=== PATIENT | male | born 1955 | race Caucasian/White ===

== ENCOUNTER → 2016-07-16 | Outpatient (CLI) | payer BC, OTHER ==
[~2016-07-16] MED LIST: ACET325T96 PO; ATV5X PO; BUPR-79 PO; CEPH500C2 PO; DVN/160 PO; GLC/500 PO; LVNIS40 SC; OXYC-57 PO; SCOP1.5D TD; TADA20TA PO
--- NOTE | 2016-07-16 11:49 | DIAGNOSTIC IMAGING REPORT ---
Bilateral knees 7 VIEWS CLINICAL HISTORY: Bilateral knee pain COMPARISON: None. DISCUSSION: On the right, there are no acute fractures. There are mild osteoarthritic changes. There is a probable small posterior loose body. There is equivocal trace joint effusion. No destructive lesions are evident. On the left, there are moderate osteoarthritic changes. There are postsurgical changes of an ACL repair. There are dorsal patellar spurs. IMPRESSION: 1. Bilateral osteoarthritic changes left more severe than right 2. Postsurgical changes are prior left knee ACL repair 3. No acute fractures. Electronically signed by: Alexander Mcintyre M.D. 07/16/2016 11:48 AM Dictated Date/Time: 07/16/2016 11:47 AM
== END | disposition home or self-care (01) ==
LOC: C.RDSM 11:15
PROVIDERS: ATTEND Physician Assistant
DX: M25.561 Pain in right knee (principal); M25.562 Pain in left knee